=== PATIENT | female | born 1945 | race Caucasian/White ===

== ENCOUNTER 2022-08-05 22:34 | Inpatient (IN) ==
[2022-08-05] MEDS ORDERED: Propofol 10 mg/ml 100 ML BTL 100 ML ONE (22:45)
[2022-08-05] MEDS ORDERED: Albuterol/Ipratropium NEB.SOL (2.5/0.5 MG) 3 ML NEB.SOLN INH PRN (23:27)
[2022-08-05] MEDS ORDERED: Dextrose 50% Syringe 50 ml 25 GM/50 ML SYRINGE IV PUSH PRN (23:27)
[2022-08-05 23:40] LABS: ABS Lymphocytes 0.2 10^3/ul (1.0-4.8); ABS Monocytes 0.9 10^3/ul (0-0.8); Eosinophil % 0.1 %; Hematocrit 46 % (35-47); Hemoglobin 14.3 g/dL (12.0-16.0); Lymphocyte % 2.5 %; Mean Corpuscular HGB Conc 31 g/dL (31-36); Mean Corpuscular Hemoglobin 29 pg (27-31); Mean Corpuscular Volume 92 fL (80-97); Mean Platelet Volume 8.5 fL (7.4-10.4); Nucleated Red Blood Cells % 0.2; Platelet Count 146 10^3/uL (150-450); Red Blood Count 4.98 10^6 /uL (3.70-4.87); Red Cell Distribution Width 15 % (10-15); White Blood Count 8.1 10^3/uL (3.5-10.8)
[2022-08-05] MEDS ORDERED: Propofol 10 mg/ml 100 ML BTL 100 ML IV SCH (23:45)
[2022-08-05] MEDS ORDERED: Zosyn per Pharmacy NOTE FOLLOW UP SCH (23:45)
[2022-08-05 23:54] LABS: PCO2 Arterial 56 mmHg (35-45); PO2 Arterial 69 mmHg (80-100)
[2022-08-06] MEDS ORDERED: ZOSYN 3.375 GM x ONE DOSE over 30 miuntes IV
[2022-08-06 00:02] LABS: Albumin 2.9 g/dL (3.2-5.2); Albumin/Globulin Ratio 1.3 (1-3); Calcium 8.4 mg/dL (8.6-10.3); Globulin 2.3 g/dL (2-4); Magnesium 1.7 mg/dL (1.9-2.7); Total Bilirubin 1.2 mg/dL (0.2-1.0); Total Protein 5.2 g/dL (6.4-8.9); eGFR CKD-EPI 73.8 (>60)
[2022-08-06 00:07] LABS: Potassium 5.3 mmol/L (3.5-5.0)
[2022-08-06] MEDS ORDERED: Magnesium Sulfate 2 gm BAG 2 GM/50 ML BAG IVPB ONE (00:17)
[2022-08-06] MEDS ORDERED: methylPREDNISolone SOD SUCC 125 mg 2 ML VIAL IV SCH (02:00)
[2022-08-06] MEDS: Pantoprazole VIAL 40 MG VIAL IV SCH (04:59)
[2022-08-06] MEDS: Chlorhexidine MOUTHWASH 0.12% 15 ML UDC SWISH SPIT SCH ×4 (05:00→16:41)
[2022-08-06 05:52] LABS: Hematocrit 44 % (35-47); Hemoglobin 14.2 g/dL (12.0-16.0); Mean Corpuscular HGB Conc 32 g/dL (31-36); Mean Corpuscular Hemoglobin 30 pg (27-31); Mean Corpuscular Volume 92 fL (80-97); Mean Platelet Volume 9.4 fL (7.4-10.4); Platelet Count 159 10^3/uL (150-450); Red Blood Count 4.78 10^6 /uL (3.70-4.87); Red Cell Distribution Width 15 % (10-15); White Blood Count 7.5 10^3/uL (3.5-10.8)
[2022-08-06] MEDS ORDERED: Levothyroxine 100 MCG/5 ML VIAL IV SCH (06:00)
[2022-08-06 06:22] LABS: Activated Partial Thrombo Time 25.5 seconds (26.0-38.0); INR 1.25 (0.89-1.11)
[2022-08-06] MEDS: Heparin 5000 UNITS/ML 1 mL VIAL SUBCUT SCH ×3 (06:27→21:06)
[2022-08-06] MEDS: ZOSYN 3.375 GM Q8H per EXTENDED INFUSION IV SCH ×3 (06:28→22:33)
[2022-08-06 06:51] LABS: Blood Urea Nitrogen 55 mg/dL (6-24); CO2 Carbon Dioxide 31 mmol/L (22-32); Calcium 8.2 mg/dL (8.6-10.3); Chloride 95 mmol/L (101-111); Glucose 77 mg/dL (70-100); Sodium 136 mmol/L (135-145); eGFR CKD-EPI 88.5 (>60)
[2022-08-06 06:55] LABS: Anion Gap 10 mmol/L (2-11)
[2022-08-06] MEDS: Azithromycin 500 mg/250 ml NS 500 MG/250 ML BAG IVPB SCH (09:08)
[2022-08-06] MEDS: Nicotine PATCH 21 MG/24 HR PATCH TRANSDERM SCH (10:15)
[2022-08-06] MEDS ORDERED: Albuterol/Ipratropium NEB.SOL (2.5/0.5 MG) 3 ML NEB.SOLN INH SCH (11:00)
[2022-08-06] MEDS ORDERED: Zinc Oxide 40% (TOPICAL) TUBE TOPICAL SCH (12:30)
[2022-08-06 12:33] LABS: Potassium, Whole Blood 5.1 mmol/L (3.4-4.5)
[2022-08-06 12:39] LABS: Phosphorus 3.9 mg/dL (2.5-5.0)
[2022-08-06 12:40] LABS: Potassium Redraw 5.3 mmol/L (3.5-5.0)
[2022-08-06] MEDS: Albuterol/Ipratropium NEB.SOL (2.5/0.5 MG) 3 ML NEB.SOLN INH SCH ×2 (13:28→19:06)
[2022-08-06] MEDS ORDERED: methylPREDNISolone SOD SUCC 40 mg/ml 1 ml VIAL IV SCH (14:00)
[2022-08-06] MEDS: Silver Sulfadiazine 1% 20 gm TUBE TOPICAL SCH ×2 (14:34→21:05)
[2022-08-06] MEDS: methylPREDNISolone SOD SUCC 40 mg/ml 1 ml VIAL IV SCH (21:05)
[2022-08-07] MEDS: Albuterol/Ipratropium NEB.SOL (2.5/0.5 MG) 3 ML NEB.SOLN INH SCH ×4 (00:50→18:50)
[2022-08-07 04:37] LABS: Hematocrit 44 % (35-47); Hemoglobin 13.9 g/dL (12.0-16.0); Mean Corpuscular HGB Conc 32 g/dL (31-36); Mean Corpuscular Hemoglobin 29 pg (27-31); Mean Corpuscular Volume 93 fL (80-97); Mean Platelet Volume 8.2 fL (7.4-10.4); Platelet Count 131 10^3/uL (150-450); Red Blood Count 4.72 10^6 /uL (3.70-4.87); Red Cell Distribution Width 15 % (10-15); White Blood Count 8.1 10^3/uL (3.5-10.8)
[2022-08-07 05:03] LABS: Blood Urea Nitrogen 48 mg/dL (6-24); CO2 Carbon Dioxide 30 mmol/L (22-32); Calcium 8.3 mg/dL (8.6-10.3); Chloride 100 mmol/L (101-111); Glucose 138 mg/dL (70-100); Magnesium 2.1 mg/dL (1.9-2.7); Sodium 135 mmol/L (135-145); eGFR CKD-EPI 78.4 (>60)
[2022-08-07 05:12] LABS: Anion Gap 5 mmol/L (2-11)
[2022-08-07] MEDS ORDERED: Midazolam 5 mg/5 ml VIAL 1 mg/ml 5 ml VIAL (5 mg) IV SLOW PU ONE (06:00)
[2022-08-07] MEDS: ZOSYN 3.375 GM Q8H per EXTENDED INFUSION IV SCH (06:24)
[2022-08-07] MEDS: Heparin 5000 UNITS/ML 1 mL VIAL SUBCUT SCH ×3 (06:25→21:31)
[2022-08-07 06:35] LABS: Potassium Redraw 4.8 mmol/L (3.5-5.0)
[2022-08-07 06:41] LABS: Phosphorus 3.7 mg/dL (2.5-5.0)
[2022-08-07] MEDS: Pantoprazole VIAL 40 MG VIAL IV SCH (07:01)
[2022-08-07] MEDS: Azithromycin 500 mg/250 ml NS 500 MG/250 ML BAG IVPB SCH (08:28)
[2022-08-07] MEDS: methylPREDNISolone SOD SUCC 40 mg/ml 1 ml VIAL IV SCH (08:28)
[2022-08-07] MEDS: Nicotine PATCH 21 MG/24 HR PATCH TRANSDERM SCH (08:28)
[2022-08-07] MEDS ORDERED: Polyethylene Glycol 3350 17 GM PACKET PO PRN (09:49)
[2022-08-07] MEDS ORDERED: cefTRIAXone 1 gm/50 mL D5W 1 GM/50 ML BAG IV SCH (10:00)
[2022-08-07] MEDS: Silver Sulfadiazine 1% 20 gm TUBE TOPICAL SCH ×2 (11:38→21:31)
[2022-08-07] MEDS: Senna TAB 8.6 mg TAB PO SCH ×2 (12:40→21:30)
[2022-08-07] MEDS: cefTRIAXone 1 gm/50 mL D5W 1 GM/50 ML BAG IV SCH (14:47)
[2022-08-08] MEDS: Albuterol/Ipratropium NEB.SOL (2.5/0.5 MG) 3 ML NEB.SOLN INH SCH ×4 (01:13→19:06)
[2022-08-08 05:03] LABS: Hematocrit 42 % (35-47); Hemoglobin 13.2 g/dL (12.0-16.0); Mean Corpuscular HGB Conc 31 g/dL (31-36); Mean Corpuscular Hemoglobin 29 pg (27-31); Mean Corpuscular Volume 92 fL (80-97); Mean Platelet Volume 8.3 fL (7.4-10.4); Platelet Count 138 10^3/uL (150-450); Red Blood Count 4.57 10^6 /uL (3.70-4.87); Red Cell Distribution Width 15 % (10-15); White Blood Count 8.4 10^3/uL (3.5-10.8)
[2022-08-08 05:36] LABS: Calcium 8.5 mg/dL (8.6-10.3); Magnesium 2.2 mg/dL (1.9-2.7); Phosphorus 3.6 mg/dL (2.5-5.0); Potassium 5.3 mmol/L (3.5-5.0)
[2022-08-08] MEDS: Heparin 5000 UNITS/ML 1 mL VIAL SUBCUT SCH ×3 (05:58→20:06)
[2022-08-08] MEDS: Azithromycin 500 mg/250 ml NS 500 MG/250 ML BAG IVPB SCH (08:22)
[2022-08-08] MEDS: Nicotine PATCH 21 MG/24 HR PATCH TRANSDERM SCH (08:27)
[2022-08-08] MEDS: Senna TAB 8.6 mg TAB PO SCH ×2 (08:32→20:06)
[2022-08-08] MEDS: Silver Sulfadiazine 1% 20 gm TUBE TOPICAL SCH ×2 (08:36→20:05)
[2022-08-08] MEDS ORDERED: Influenza vaccine *QUAD* *2022-23* 0.5 ML SYRINGE IM ONE (09:00)
[2022-08-08] MEDS ORDERED: methylPREDNISolone SOD SUCC 40 mg/ml 1 ml VIAL IV SCH (09:00)
[2022-08-08 12:35] LABS: ABS Basophils 0.1 10^3/ul (0-0.2); ABS Lymphocytes 0.1 10^3/ul (1.0-4.8); ABS Monocytes 0.7 10^3/ul (0-0.8); ABS Neutrophils 7.4 10^3/ul (1.5-7.7); Lymphocyte % 1.4 %
[2022-08-08 12:56] LABS: Urine Appearance Cloudy; Urine Bilirubin Negative (Negative); Urine Blood 3+ (Negative); Urine Color Amber; Urine Glucose Negative (Negative); Urine Ketones Negative (Negative); Urine Nitrite Negative (Negative); Urine Protein 2+(100 mg/dL) (Negative); Urine Specific Gravity 1.027 (1.002-1.030); Urine Urobilinogen Negative (Negative)
[2022-08-08 13:04] LABS: Urine Bacteria Absent (Absent); Urine Red Blood Cell 3+(>10/hpf) (Absent); Urine Squamous Epithelial Cell Present (Absent); Urine White Blood Cell 2+(11-20/hpf) (Absent)
[2022-08-08] MEDS: cefTRIAXone 1 gm/50 mL D5W 1 GM/50 ML BAG IV SCH (14:59)
[2022-08-09] MEDS: Albuterol/Ipratropium NEB.SOL (2.5/0.5 MG) 3 ML NEB.SOLN INH SCH ×5 (02:04→19:43)
[2022-08-09 04:20] LABS: Hematocrit 42 % (35-47); Hemoglobin 13.2 g/dL (12.0-16.0); Mean Corpuscular HGB Conc 31 g/dL (31-36); Mean Corpuscular Hemoglobin 29 pg (27-31); Mean Corpuscular Volume 93 fL (80-97); Mean Platelet Volume 8.2 fL (7.4-10.4); Platelet Count 133 10^3/uL (150-450); Red Blood Count 4.56 10^6 /uL (3.70-4.87); Red Cell Distribution Width 16 % (10-15); White Blood Count 7.9 10^3/uL (3.5-10.8)
[2022-08-09] MEDS: Heparin 5000 UNITS/ML 1 mL VIAL SUBCUT SCH ×3 (05:11→23:59)
[2022-08-09 05:52] LABS: Calcium 8.4 mg/dL (8.6-10.3); Magnesium 2.3 mg/dL (1.9-2.7)
[2022-08-09 05:57] LABS: Phosphorus 4.4 mg/dL (2.5-5.0); eGFR CKD-EPI 48.5 (>60)
[2022-08-09 06:03] LABS: Potassium 6.4 mmol/L (3.5-5.0)
[2022-08-09] MEDS ORDERED: Dextrose 50% Syringe 50 ml 25 GM/50 ML SYRINGE IV PUSH PRN (06:04)
[2022-08-09] MEDS ORDERED: CALCIUM GLUCONATE 1GM/50ML NS 1 GM/50 ML BAG IV ONE (06:04)
[2022-08-09] MEDS ORDERED: NS 0.9% 250 ml 250 ML IV ONE (06:53)
[2022-08-09] MEDS ORDERED: Senna TAB 8.6 mg TAB PO PRN (07:14)
[2022-08-09] MEDS ORDERED: NS 0.9% 500 ml BAG 500 ML IV ONE (08:12)
[2022-08-09] MEDS: Nicotine PATCH 21 MG/24 HR PATCH TRANSDERM SCH (08:17)
[2022-08-09] MEDS: Polyethylene Glycol 3350 17 GM PACKET PO SCH ×2 (08:18→08:34)
[2022-08-09] MEDS: Senna TAB 8.6 mg TAB PO SCH ×3 (08:41→21:50)
[2022-08-09] MEDS: Silver Sulfadiazine 1% 20 gm TUBE TOPICAL SCH ×3 (09:00→23:58)
[2022-08-09] MEDS ORDERED: NORMOSOL-R pH 7.4 1000 mL BAG 1,000 ML IV SCH ×2 (10:00→18:16)
[2022-08-09 11:43] LABS: Calcium 6.7 mg/dL (8.6-10.3); Potassium 4.9 mmol/L (3.5-5.0); eGFR CKD-EPI 78.4 (>60)
[2022-08-09] MEDS ORDERED: Rocuronium 50 mg VIAL 10 mg/ml 5 ml VIAL (50 mg) ONE (13:51)
[2022-08-09] MEDS ORDERED: Propofol 10 MG/ML 20 ML BTL ONE (13:51)
[2022-08-09] MEDS ORDERED: Lidocaine 2% PF 5 ML VIAL ONE (13:51)
[2022-08-09] MEDS ORDERED: fentaNYL 100 mcg/2 ml 50 MCG/ML VIAL ONE (13:51)
[2022-08-09] MEDS ORDERED: Dexamethasone IV 4 MG/ML VIAL 1 ml VIAL ONE (13:51)
[2022-08-09] MEDS ORDERED: Ondansetron 4 mg VIAL 2 MG/ML 2 ml VIAL ONE (13:51)
[2022-08-09] MEDS ORDERED: Albuterol 2.5mg/3 ml (0.083%) NEB.SOLN INH PRN (13:53)
[2022-08-09] MEDS ORDERED: Iodixanol 320 (CONTRAST) 100 ML SDV ONE (14:36)
[2022-08-09] MEDS ORDERED: Heparin 2 UNITS/ML IVPREMIX 3,000 UNIT/1,500 ML BAG IV ONE (14:36)
[2022-08-09] MEDS ORDERED: Lidocaine 1% VIAL 10 MG/ML VIAL ONE (14:37)
[2022-08-09] MEDS ORDERED: Iohexol 350 (CONTRAST) 100 ML PAK IV ONE ×2 (14:51→15:07)
[2022-08-09] MEDS ORDERED: Heparin 1,000 UNIT/ML 10 ml (10,000 UNITS) CATHLAB/DIALYSIS ONE (15:07)
[2022-08-09] MEDS ORDERED: Heparin 2 UNITS/ML IVPREMIX 1,000 UNIT/500 ML BAG IV ONE (16:27)
[2022-08-09] MEDS ORDERED: Ondansetron 4 mg VIAL 2 MG/ML 2 ml VIAL IV PRN (16:33)
[2022-08-09] MEDS ORDERED: fentaNYL 100 mcg/2 ml 50 MCG/ML VIAL IV PRN (16:33)
[2022-08-09] MEDS ORDERED: Naloxone 0.4 mg VIAL 0.4 mg/ml 1 ml VIAL IV PRN (16:33)
[2022-08-09] MEDS ORDERED: Acetaminophen IV 1 GM/100ML 1,000 MG/100 ML BAG IV PRN (16:33)
[2022-08-09] MEDS ORDERED: HYDROmorphone 1 MG/1 ML SYRINGE IV PRN (16:33)
[2022-08-09] MEDS: cefTRIAXone 1 gm/50 mL D5W 1 GM/50 ML BAG IV SCH (17:43)
[2022-08-09] MEDS: Albuterol 2.5mg/3 ml (0.083%) NEB.SOLN INH ONE ×2 (19:41→19:42)
[2022-08-10] MEDS: Albuterol/Ipratropium NEB.SOL (2.5/0.5 MG) 3 ML NEB.SOLN INH SCH ×4 (02:00→19:22)
[2022-08-10] MEDS: Heparin 5000 UNITS/ML 1 mL VIAL SUBCUT SCH ×3 (06:27→21:47)
[2022-08-10 06:57] LABS: Hematocrit 46 % (35-47); Hemoglobin 13.9 g/dL (12.0-16.0); Mean Corpuscular HGB Conc 31 g/dL (31-36); Mean Corpuscular Hemoglobin 29 pg (27-31); Mean Corpuscular Volume 94 fL (80-97); Mean Platelet Volume 8.1 fL (7.4-10.4); Platelet Count 136 10^3/uL (150-450); Red Blood Count 4.83 10^6 /uL (3.70-4.87); Red Cell Distribution Width 16 % (10-15); White Blood Count 6.3 10^3/uL (3.5-10.8)
[2022-08-10 07:20] LABS: Calcium 8.8 mg/dL (8.6-10.3); Magnesium 2.2 mg/dL (1.9-2.7); Phosphorus 4.8 mg/dL (2.5-5.0); eGFR CKD-EPI 79.7 (>60)
[2022-08-10 07:23] LABS: Potassium 6.2 mmol/L (3.5-5.0)
[2022-08-10] MEDS ORDERED: Dextrose 50% Syringe 50 ml 25 GM/50 ML SYRINGE IV PUSH ONE ×2 (07:31→16:59)
[2022-08-10] MEDS: Silver Sulfadiazine 1% 20 gm TUBE TOPICAL SCH ×2 (08:37→23:47)
[2022-08-10] MEDS: Polyethylene Glycol 3350 17 GM PACKET PO SCH (08:38)
[2022-08-10] MEDS: Senna TAB 8.6 mg TAB PO SCH ×3 (08:38→21:47)
[2022-08-10] MEDS: Nicotine PATCH 21 MG/24 HR PATCH TRANSDERM SCH (08:38)
[2022-08-10] MEDS: NORMOSOL-R pH 7.4 1000 mL BAG 1,000 ML IV SCH ×2 (12:26→21:43)
[2022-08-10] MEDS: cefTRIAXone 1 gm/50 mL D5W 1 GM/50 ML BAG IV SCH (16:15)
[2022-08-10 16:56] LABS: Calcium 8.5 mg/dL (8.6-10.3); eGFR CKD-EPI 79.7 (>60)
[2022-08-10 16:57] LABS: Potassium 6.1 mmol/L (3.5-5.0)
[2022-08-10] MEDS ORDERED: Dextrose 50% VIAL 50 ml IV ONE (16:59)
[2022-08-10 19:14] LABS: Calcium 8.5 mg/dL (8.6-10.3); Potassium 5.6 mmol/L (3.5-5.0); eGFR CKD-EPI 82.2 (>60)
[2022-08-10] MEDS: SODIUM ZIRCONIUM CYCLOSILICATE 10 GM PACKET PO SCH (21:46)
[2022-08-10] MEDS ORDERED: Albuterol HFA INHALER 8 gm MDI INH PRN (22:58)
[2022-08-10] MEDS ORDERED: Albuterol/Ipratropium NEB.SOL (2.5/0.5 MG) 3 ML NEB.SOLN INH SCH (23:00)
[2022-08-10 23:36] LABS: CO2 Carbon Dioxide 27 mmol/L (22-32); Calcium 8.7 mg/dL (8.6-10.3); Chloride 102 mmol/L (101-111); Sodium 134 mmol/L (135-145)
[2022-08-10 23:42] LABS: Blood Urea Nitrogen 53 mg/dL (6-24); Glucose 239 mg/dL (70-100); eGFR CKD-EPI 86.4 (>60)
[2022-08-11 00:20] LABS: Anion Gap 5 mmol/L (2-11)
[2022-08-11] MEDS: Heparin 5000 UNITS/ML 1 mL VIAL SUBCUT SCH ×3 (05:47→22:11)
[2022-08-11 06:36] LABS: Hematocrit 47 % (35-47); Hemoglobin 14.4 g/dL (12.0-16.0); Mean Corpuscular HGB Conc 30 g/dL (31-36); Mean Corpuscular Hemoglobin 29 pg (27-31); Mean Corpuscular Volume 94 fL (80-97); Platelet Count 130 10^3/uL (150-450); Red Blood Count 5.03 10^6 /uL (3.70-4.87); Red Cell Distribution Width 16 % (10-15); White Blood Count 6.2 10^3/uL (3.5-10.8)
[2022-08-11 07:21] LABS: Calcium 8.7 mg/dL (8.6-10.3); Magnesium 2.2 mg/dL (1.9-2.7); eGFR CKD-EPI 79.7 (>60)
[2022-08-11] MEDS ORDERED: SODIUM ZIRCONIUM CYCLOSILICATE 10 GM PACKET PO ONE ×2 (07:31)
[2022-08-11] MEDS ORDERED: SODIUM ZIRCONIUM CYCLOSILICATE 5 GM PACKET PO ONE (07:31)
[2022-08-11] MEDS: NORMOSOL-R pH 7.4 1000 mL BAG 1,000 ML IV SCH (08:10)
[2022-08-11] MEDS ORDERED: SODIUM ZIRCONIUM CYCLOSILICATE 5 GM PACKET PO SCH (09:00)
[2022-08-11] MEDS ORDERED: Furosemide 20 mg/2 ml IV VIAL IV ONE (10:52)
[2022-08-11] MEDS ORDERED: Albuterol/Ipratropium NEB.SOL (2.5/0.5 MG) 3 ML NEB.SOLN INH ONE (10:53)
[2022-08-11] MEDS: Albuterol/Ipratropium NEB.SOL (2.5/0.5 MG) 3 ML NEB.SOLN INH PRN ×2 (10:58→19:13)
[2022-08-11] MEDS: Senna TAB 8.6 mg TAB PO SCH ×2 (11:00→21:54)
[2022-08-11] MEDS: Polyethylene Glycol 3350 17 GM PACKET PO SCH (11:00)
[2022-08-11] MEDS: SODIUM ZIRCONIUM CYCLOSILICATE 10 GM PACKET PO SCH (11:30)
[2022-08-11] MEDS ORDERED: Dextrose 50% Syringe 50 ml 25 GM/50 ML SYRINGE IV PUSH ONE (11:33)
[2022-08-11] MEDS: Nicotine PATCH 21 MG/24 HR PATCH TRANSDERM SCH (12:16)
[2022-08-11] MEDS: Silver Sulfadiazine 1% 20 gm TUBE TOPICAL SCH ×2 (13:25→21:54)
[2022-08-11] MEDS: cefTRIAXone 1 gm/50 mL D5W 1 GM/50 ML BAG IV SCH (15:44)
[2022-08-11 16:10] LABS: Calcium 8.4 mg/dL (8.6-10.3); eGFR CKD-EPI 74.9 (>60)
[2022-08-11 16:28] LABS: Potassium 5.1 mmol/L (3.5-5.0)
[2022-08-12] MEDS: Heparin 5000 UNITS/ML 1 mL VIAL SUBCUT SCH ×2 (05:23→13:14)
[2022-08-12 06:29] LABS: ABS Lymphocytes 0.2 10^3/ul (1.0-4.8); ABS Monocytes 0.4 10^3/ul (0-0.8); ABS Neutrophils 4.3 10^3/ul (1.5-7.7); Hematocrit 42 % (35-47); Hemoglobin 13.1 g/dL (12.0-16.0); Lymphocyte % 3.4 %; Mean Corpuscular HGB Conc 31 g/dL (31-36); Mean Corpuscular Hemoglobin 29 pg (27-31); Mean Corpuscular Volume 93 fL (80-97); Mean Platelet Volume 8.3 fL (7.4-10.4); Nucleated Red Blood Cells % 0.1; Platelet Count 117 10^3/uL (150-450); Red Blood Count 4.56 10^6 /uL (3.70-4.87); Red Cell Distribution Width 15 % (10-15); White Blood Count 4.9 10^3/uL (3.5-10.8)
[2022-08-12 06:49] LABS: Calcium 8.3 mg/dL (8.6-10.3); Magnesium 1.8 mg/dL (1.9-2.7); Phosphorus 2.4 mg/dL (2.5-5.0); eGFR CKD-EPI 88.5 (>60)
[2022-08-12 06:54] LABS: Potassium 5.1 mmol/L (3.5-5.0)
[2022-08-12] MEDS: Polyethylene Glycol 3350 17 GM PACKET PO SCH (08:59)
[2022-08-12] MEDS: SODIUM ZIRCONIUM CYCLOSILICATE 10 GM PACKET PO SCH (08:59)
[2022-08-12] MEDS: Senna TAB 8.6 mg TAB PO SCH ×2 (10:15→21:31)
[2022-08-12] MEDS: Nicotine PATCH 21 MG/24 HR PATCH TRANSDERM SCH (10:28)
[2022-08-12] MEDS: Silver Sulfadiazine 1% 20 gm TUBE TOPICAL SCH (12:12)
[2022-08-12] MEDS ORDERED: Albuterol/Ipratropium NEB.SOL (2.5/0.5 MG) 3 ML NEB.SOLN ONE (14:02)
[2022-08-12] MEDS ORDERED: Furosemide 20 mg/2 ml IV VIAL IV SLOW PU ONE (14:02)
[2022-08-12] MEDS: Albuterol/Ipratropium NEB.SOL (2.5/0.5 MG) 3 ML NEB.SOLN INH PRN (14:04)
[2022-08-12] MEDS ORDERED: Albuterol/Ipratropium NEB.SOL (2.5/0.5 MG) 3 ML NEB.SOLN INH SCH ×2 (15:00→19:00)
[2022-08-12 15:17] LABS: ABS Lymphocytes 0.1 10^3/ul (1.0-4.8); ABS Monocytes 0.1 10^3/ul (0-0.8); ABS Neutrophils 5.5 10^3/ul (1.5-7.7); Eosinophil % 0.1 %; Hematocrit 46 % (35-47); Hemoglobin 14.1 g/dL (12.0-16.0); Mean Corpuscular HGB Conc 31 g/dL (31-36); Mean Corpuscular Hemoglobin 29 pg (27-31); Mean Corpuscular Volume 93 fL (80-97); Mean Platelet Volume 7.8 fL (7.4-10.4); Nucleated Red Blood Cells % 0.1; Platelet Count 109 10^3/uL (150-450); Red Blood Count 4.96 10^6 /uL (3.70-4.87); Red Cell Distribution Width 16 % (10-15); White Blood Count 5.7 10^3/uL (3.5-10.8)
[2022-08-12 15:24] LABS: PO2 Arterial 83 mmHg (80-100)
[2022-08-12] MEDS ORDERED: Polyethylene Glycol 3350 17 GM PACKET PO PRN (15:28)
[2022-08-12] MEDS ORDERED: Ondansetron 4 mg VIAL 2 MG/ML 2 ml VIAL IV PRN (15:28)
[2022-08-12 15:29] LABS: PCO2 Arterial 88 mmHg (35-45)
[2022-08-12 16:16] LABS: Albumin 2.9 g/dL (3.2-5.2); Albumin/Globulin Ratio 1.1 (1-3); Calcium 7.8 mg/dL (8.6-10.3); Globulin 2.6 g/dL (2-4); Total Bilirubin 0.7 mg/dL (0.2-1.0); Total Protein 5.5 g/dL (6.4-8.9); eGFR CKD-EPI 94.5 (>60)
[2022-08-12 16:31] LABS: Potassium 5.1 mmol/L (3.5-5.0)
[2022-08-12] MEDS: Morphine 2 MG/ML SYRINGE IV PRN (19:25)
[2022-08-13] MEDS: Morphine 2 MG/ML SYRINGE IV PRN ×3 (02:55→23:55)
[2022-08-13] MEDS: Senna TAB 8.6 mg TAB PO SCH ×2 (10:58→20:23)
[2022-08-13] MEDS: Nicotine PATCH 21 MG/24 HR PATCH TRANSDERM SCH (11:32)
[2022-08-14] MEDS: Morphine 2 MG/ML SYRINGE IV PRN (08:41)
[2022-08-14] MEDS: Nicotine PATCH 21 MG/24 HR PATCH TRANSDERM SCH (08:42)
[2022-08-14] MEDS: Senna TAB 8.6 mg TAB PO SCH ×2 (08:43→21:24)
[2022-08-15] MEDS: Morphine 2 MG/ML SYRINGE IV PRN ×2 (01:10→22:03)
[2022-08-15] MEDS: Senna TAB 8.6 mg TAB PO SCH ×2 (11:02→20:57)
[2022-08-15] MEDS: Nicotine PATCH 21 MG/24 HR PATCH TRANSDERM SCH (12:45)
[2022-08-16] MEDS: Morphine 2 MG/ML SYRINGE IV PRN ×7 (00:03→23:14)
[2022-08-16] MEDS: Atropine 1% (ORAL/SL) 15 ML BTL SL PRN (03:09)
[2022-08-16] MEDS: Senna TAB 8.6 mg TAB PO SCH ×2 (07:34→21:46)
[2022-08-16] MEDS: Nicotine PATCH 21 MG/24 HR PATCH TRANSDERM SCH (08:28)
[2022-08-17] MEDS: Morphine 2 MG/ML SYRINGE IV PRN ×5 (03:41→21:04)
[2022-08-17] MEDS: Senna TAB 8.6 mg TAB PO SCH ×2 (08:14→20:29)
[2022-08-17] MEDS: Nicotine PATCH 21 MG/24 HR PATCH TRANSDERM SCH (08:19)
[2022-08-18] MEDS: Morphine 2 MG/ML SYRINGE IV PRN ×5 (00:32→06:30)
[2022-08-18] MEDS ORDERED: Acetaminophen IV 1 GM/100ML 1,000 MG/100 ML BAG IV PRN (02:28)
[2022-08-18 06:25] VITALS: BP 101/64
[2022-08-18] MEDS: Atropine 1% (ORAL/SL) 15 ML BTL SL PRN (06:31)
== END 2022-08-18 07:44 | disposition expired | DRG 208 ==
LOC: SUATTDRO 22:39 → ICU 22:39 → MED 08-10 21:06
PROVIDERS: ADMIT Internal Medicine; ATTEND Student in an Organized Health Care Education/Training Program
PROC: ANG.PRO (2022-08-09 14:45)